=== PATIENT | female | born 1935 | race African-American/Black ===

== ENCOUNTER 2021-10-13 19:28 | Inpatient (IN) | payer MEDICARE, MEDICAID ==
[~2021-10-13] VITALS: Ht 160 cm; Wt 86.0 kg
[2021-10-13 20:08] LABS: HEMATOCRIT. 37.8 % (36.0-48.0); HEMOGLOBIN. 11.9 g/dL (12.0-16.0); MEAN CORPUSCULAR HEMOGLOBIN 28.6 pg (28.0-32.0); MEAN CORPUSCULAR VOLUME 90.6 fL (81.0-99.0); MEAN PLATELET VOLUME 10.2 fl (7.4-10.4); PLATELET 166 x1000/uL (130-400); RED BLOOD CELL COUNT 4.17 mill/uL (4.2-5.4); RED CELL DISTRIBUTION WIDTH 15.9 % (11.6-14.6)
[2021-10-13 20:14] LABS: CHLORIDE 108 mEq/L (98-107)
[2021-10-13 20:35] LABS: CREATINE KINASE 1791 IU/L (26-192)
[2021-10-13 20:48] LABS: PLATELET ESTIMATE NORMAL
[2021-10-13] MEDS ORDERED: SODIUM CHLORIDE 0.9% 500 ML IV ONE (22:45)
[2021-10-14 05:23] VITALS: BP 133/60
[2021-10-14] MEDS ORDERED: DORZ10DR9 EACHEYE (06:00)
[2021-10-14] MEDS ORDERED: FURO20TA4 PO (06:00)
[2021-10-14] MEDS ORDERED: NETA2.5D3 EACHEYE (06:00)
[2021-10-14] MEDS ORDERED: CALC0.253 PO (06:00)
[2021-10-14] MEDS ORDERED: VALS320T16 PO (06:00)
[2021-10-14] MEDS ORDERED: KETO5DRO80 EACHEYE (06:00)
[2021-10-14] MEDS ORDERED: PANT40TA51 PO (06:00)
[2021-10-14] MEDS ORDERED: DAPA5TAB PO (06:00)
[2021-10-14] MEDS ORDERED: ROSU20TA2 (06:00)
[2021-10-14] MEDS ORDERED: CARV12.545 PO (06:00)
[2021-10-14] MEDS ORDERED: PANTOPRAZOLE 40MG DR TABLET PO SCH (06:45)
[2021-10-14] MEDS ORDERED: NON FORMULARY PATIENT HOME MED OP SCH (07:00)
[2021-10-14] MEDS ORDERED: DEXTROSE 50% WATER 50ML SYRINGE IV PRN (07:00)
[2021-10-14] MEDS ORDERED: NALOXONE HCL 0.4MG/ML VIAL IV PRN (07:00)
[2021-10-14] MEDS: SODIUM CHLORIDE 0.9% 1,000 ML IV SCH ×3 (07:06→23:05)
[2021-10-14] MEDS: INSULIN LISPRO 100 UNITS/ML SUBCUT SCH ×4 (07:18→20:59)
[2021-10-14 08:00] VITALS: BP 115/50
[2021-10-14] MEDS: LOSARTAN POTASSIUM 100 MG TABLET PO SCH (10:11)
[2021-10-14] MEDS: CARVEDILOL 12.5MG TABLET PO SCH ×2 (10:11→20:58)
[2021-10-14] MEDS: DORZOLAM/TIMOLOL 2.23/0.68% OPHTH DROPS 10ML BOTHEYE SCH ×2 (10:12→20:59)
[2021-10-14 10:42] LABS: BASOPHILS % 0.3 % (0.0-2.0); EOSINOPHILS % 2.5 % (0.0-5.0); HEMATOCRIT. 34.4 % (36.0-48.0); HEMOGLOBIN. 10.8 g/dL (12.0-16.0); LYMPHOCYTES % 13.5 % (20.0-50.0); MEAN CORPUSCULAR HEMOGLOBIN 28.6 pg (28.0-32.0); MEAN PLATELET VOLUME 9.3 fl (7.4-10.4); MONOCYTES % 9.7 % (2.0-8.0); PLATELET 174 x1000/uL (130-400); RED BLOOD CELL COUNT 3.78 mill/uL (4.2-5.4); RED CELL DISTRIBUTION WIDTH 15.6 % (11.6-14.6)
[2021-10-14] MEDS: BLOOD SUGAR DIAGNOSTIC STRIP TEST SCH ×3 (11:40→20:53)
[2021-10-14 12:00] VITALS: BP 115/52
[2021-10-14] MEDS: KETOROLAC TROMETHAMINE 0.4% OPHTH 5ML BOTHEYE SCH ×3 (12:02→23:03)
[2021-10-14 16:00] VITALS: BP 125/60
[2021-10-14] MEDS: ENOXAPARIN 30MG/0.3ML SYR SUBCUT SCH (17:06)
[2021-10-14 20:00] VITALS: BP 116/57
[2021-10-14 20:02] LABS: CLARITY URINE CLOUDY (CLEAR); COLOR URINE YELLOW (YELLOW); KETONES URINE TRACE (NEGATIVE); LEUKOCYTE ESTERASE URINE NEGATIVE (NEGATIVE); NITRITE URINE NEGATIVE (NEGATIVE); OCCULT BLOOD URINE 1+ (NEGATIVE); PROTEIN URINE 2+ (NEGATIVE); SPECIFIC GRAVITY URINE 1.016 (1.005-1.030); UROBILINOGEN URINE 0.2 E.U./dL (0.2-1.0)
[2021-10-14] MEDS: ATORVASTATIN CALCIUM 40MG TABLET PO SCH (20:58)
[2021-10-14] MEDS: CEFTRIAXONE 1,000 MG in DEXTROSE 5% WATER 50 ML IV SCH (23:03)
[2021-10-14] MEDS: GUAIFENESIN-DM 200MG-20MG/10ML UDC PO PRN (23:03)
[2021-10-15] VITALS: BP 120/55
[2021-10-15 04:00] VITALS: BP 128/54
[2021-10-15] MEDS: KETOROLAC TROMETHAMINE 0.4% OPHTH 5ML BOTHEYE SCH ×4 (05:27→23:54)
[2021-10-15] MEDS: HYDROCODONE/ACETAMINOPHEN 10/325MG TABLET PO PRN (05:28)
[2021-10-15] MEDS: BLOOD SUGAR DIAGNOSTIC STRIP TEST SCH ×4 (05:56→20:54)
[2021-10-15] MEDS: INSULIN LISPRO 100 UNITS/ML SUBCUT SCH ×4 (05:57→21:59)
[2021-10-15 08:00] VITALS: BP 146/47
[2021-10-15] MEDS: LOSARTAN POTASSIUM 100 MG TABLET PO SCH (08:52)
[2021-10-15] MEDS: CARVEDILOL 12.5MG TABLET PO SCH ×2 (08:52→21:56)
[2021-10-15] MEDS: DORZOLAM/TIMOLOL 2.23/0.68% OPHTH DROPS 10ML BOTHEYE SCH ×2 (08:52→21:56)
[2021-10-15 09:39] LABS: HEMATOCRIT. 34.4 % (36.0-48.0); HEMOGLOBIN. 10.7 g/dL (12.0-16.0); MEAN CORPUSCULAR HEMOGLOBIN 28.2 pg (28.0-32.0); MEAN CORPUSCULAR VOLUME 90.7 fL (81.0-99.0); MEAN PLATELET VOLUME 9.1 fl (7.4-10.4); PLATELET 178 x1000/uL (130-400); RED BLOOD CELL COUNT 3.79 mill/uL (4.2-5.4); RED CELL DISTRIBUTION WIDTH 15.7 % (11.6-14.6)
[2021-10-15 12:00] VITALS: BP 126/64
[2021-10-15] MEDS: SODIUM CHLORIDE 0.9% 1,000 ML IV SCH ×2 (12:21→22:45)
[2021-10-15 14:38] LABS: ATYPICAL LYMPHOCYTES 1; PLATELET ESTIMATE NORMAL
[2021-10-15] MEDS: ENOXAPARIN 30MG/0.3ML SYR SUBCUT SCH (15:06)
[2021-10-15 16:00] VITALS: BP 105/50
[2021-10-15 20:00] VITALS: BP 116/61
[2021-10-15] MEDS: ATORVASTATIN CALCIUM 40MG TABLET PO SCH (21:56)
[2021-10-15] MEDS: CEFTRIAXONE 1,000 MG in DEXTROSE 5% WATER 50 ML IV SCH (23:54)
[2021-10-16] VITALS: BP 108/58
[2021-10-16 04:00] VITALS: BP 139/67
[2021-10-16] MEDS: INSULIN LISPRO 100 UNITS/ML SUBCUT SCH ×4 (05:51→20:28)
[2021-10-16] MEDS: BLOOD SUGAR DIAGNOSTIC STRIP TEST SCH ×4 (05:51→20:28)
[2021-10-16] MEDS: KETOROLAC TROMETHAMINE 0.4% OPHTH 5ML BOTHEYE SCH ×4 (06:13→20:26)
[2021-10-16 08:00] VITALS: BP 151/71
[2021-10-16] MEDS: DORZOLAM/TIMOLOL 2.23/0.68% OPHTH DROPS 10ML BOTHEYE SCH ×2 (08:32→20:28)
[2021-10-16] MEDS: LOSARTAN POTASSIUM 100 MG TABLET PO SCH (08:32)
[2021-10-16] MEDS: CARVEDILOL 12.5MG TABLET PO SCH ×2 (08:33→20:34)
[2021-10-16] MEDS: SODIUM CHLORIDE 0.9% 1,000 ML IV SCH ×2 (08:33→17:49)
[2021-10-16] MEDS: HYDROCODONE/ACETAMINOPHEN 10/325MG TABLET PO PRN (08:57)
[2021-10-16] MEDS: GUAIFENESIN-DM 200MG-20MG/10ML UDC PO PRN (08:57)
[2021-10-16 09:26] LABS: HEMATOCRIT. 35.6 % (36.0-48.0); HEMOGLOBIN. 10.7 g/dL (12.0-16.0); MEAN CORPUSCULAR HEMOGLOBIN 27.8 pg (28.0-32.0); MEAN CORPUSCULAR VOLUME 92.9 fL (81.0-99.0); MEAN PLATELET VOLUME 8.6 fl (7.4-10.4); PLATELET 187 x1000/uL (130-400); RED BLOOD CELL COUNT 3.83 mill/uL (4.2-5.4); RED CELL DISTRIBUTION WIDTH 16.1 % (11.6-14.6)
[2021-10-16 12:00] VITALS: BP 109/57
[2021-10-16 16:00] VITALS: BP 112/50
[2021-10-16 16:30] LABS: PLATELET ESTIMATE NORMAL
[2021-10-16] MEDS: ENOXAPARIN 30MG/0.3ML SYR SUBCUT SCH (16:47)
[2021-10-16 20:00] VITALS: BP 117/53
[2021-10-16] MEDS: ATORVASTATIN CALCIUM 40MG TABLET PO SCH (20:33)
[2021-10-16] MEDS: HYDRALAZINE HCL 25MG TABLET PO SCH (22:13)
[2021-10-16] MEDS: CEFTRIAXONE 1,000 MG in DEXTROSE 5% WATER 50 ML IV SCH (22:13)
[2021-10-17] VITALS: BP 128/65
[2021-10-17 04:00] VITALS: BP 135/66
[2021-10-17] MEDS: KETOROLAC TROMETHAMINE 0.4% OPHTH 5ML BOTHEYE SCH ×4 (05:16→23:18)
[2021-10-17] MEDS: HYDRALAZINE HCL 25MG TABLET PO SCH ×2 (05:21→13:09)
[2021-10-17] MEDS: BLOOD SUGAR DIAGNOSTIC STRIP TEST SCH ×4 (06:01→20:38)
[2021-10-17] MEDS: INSULIN LISPRO 100 UNITS/ML SUBCUT SCH ×4 (06:01→20:40)
[2021-10-17 08:00] VITALS: BP 175/82
[2021-10-17] MEDS: DORZOLAM/TIMOLOL 2.23/0.68% OPHTH DROPS 10ML BOTHEYE SCH ×2 (08:17→20:38)
[2021-10-17] MEDS: CARVEDILOL 12.5MG TABLET PO SCH ×2 (08:17→20:38)
[2021-10-17 08:19] LABS: HEMOGLOBIN. 11.2 g/dL (12.0-16.0); MEAN CORPUSCULAR HEMOGLOBIN 29.1 pg (28.0-32.0); MEAN CORPUSCULAR VOLUME 91.1 fL (81.0-99.0); MEAN PLATELET VOLUME 8.4 fl (7.4-10.4); PLATELET 194 x1000/uL (130-400); RED BLOOD CELL COUNT 3.84 mill/uL (4.2-5.4); RED CELL DISTRIBUTION WIDTH 15.5 % (11.6-14.6)
[2021-10-17 08:43] LABS: CHLORIDE 115 mEq/L (98-107)
[2021-10-17 08:48] LABS: PHOSPHORUS 2.9 mg/dL (2.5-4.9)
[2021-10-17 12:00] VITALS: BP 161/90
[2021-10-17 16:00] VITALS: BP 173/75
[2021-10-17 16:10] LABS: PLATELET ESTIMATE NORMAL
[2021-10-17] MEDS: SODIUM CHLORIDE 0.9% 1,000 ML IV SCH (17:11)
[2021-10-17] MEDS ORDERED: CLONIDINE 0.1MG TABLET PO PRN (17:15)
[2021-10-17] MEDS: ENOXAPARIN 30MG/0.3ML SYR SUBCUT SCH (17:24)
[2021-10-17 20:00] VITALS: BP 164/77
[2021-10-17] MEDS: GUAIFENESIN-DM 200MG-20MG/10ML UDC PO PRN (20:38)
[2021-10-17] MEDS: ATORVASTATIN CALCIUM 40MG TABLET PO SCH (20:38)
[2021-10-17] MEDS ORDERED: HYDRALAZINE HCL 25MG TABLET PO SCH (22:00)
[2021-10-17] MEDS: CEFTRIAXONE 1,000 MG in DEXTROSE 5% WATER 50 ML IV SCH (23:18)
[2021-10-18] VITALS: BP 174/76
[2021-10-18 04:00] VITALS: BP 116/68
[2021-10-18] MEDS ORDERED: HYDRALAZINE HCL 100MG TABLET PO SCH (06:05)
[2021-10-18] MEDS: KETOROLAC TROMETHAMINE 0.4% OPHTH 5ML BOTHEYE SCH ×2 (06:10→11:39)
[2021-10-18] MEDS: INSULIN LISPRO 100 UNITS/ML SUBCUT SCH ×2 (06:11→11:35)
[2021-10-18] MEDS: BLOOD SUGAR DIAGNOSTIC STRIP TEST SCH ×2 (06:11→11:34)
[2021-10-18 08:00] VITALS: BP 119/37
[2021-10-18] MEDS: CARVEDILOL 12.5MG TABLET PO SCH (08:45)
[2021-10-18] MEDS: DORZOLAM/TIMOLOL 2.23/0.68% OPHTH DROPS 10ML BOTHEYE SCH (08:51)
[2021-10-18 10:13] VITALS: BP 150/66
[2021-10-18 10:17] VITALS: BP 150/66
[2021-10-18 12:00] VITALS: BP 138/70
== END 2021-10-18 13:45 | disposition home health service (06) | DRG 177 ==
LOC: ER 19:28 → MICUSO 22:40 → 7EST 10-14 04:10
PROVIDERS: ADMIT Internal Medicine; ATTEND Internal Medicine
DX: U07.1 COVID-19 (principal); J12.82 Pneumonia due to coronavirus disease 2019; N17.9 Acute kidney failure, unspecified; M48.061 Spinal stenosis, lumbar region without neurogenic claudication; E87.8 Other disorders of electrolyte and fluid balance, not elsewhere classified; E66.9 Obesity, unspecified; E11.22 Type 2 diabetes mellitus with diabetic chronic kidney disease; E78.5 Hyperlipidemia, unspecified; E78.00 Pure hypercholesterolemia, unspecified; N18.9 Chronic kidney disease, unspecified; I12.9 Hypertensive chronic kidney disease with stage 1 through stage 4 chronic kidney disease, or unspecified chronic kidney disease; Z68.33 Body mass index [BMI] 33.0-33.9, adult; Z71.3 Dietary counseling and surveillance
CPT/HCPCS: 36415; 71045; 72131; 72170; 73030; 76770; 80048; 80053; 80061; 81003; 82550; 82962; 83036; 83605; 83880; 83970; 84100; 84145; 84484; 85025; 87426; 93005; 97162; 99291; J0696; J1650; J1815; J7030; J7060; A4315